=== PATIENT | female | born 1985 | race African-American/Black ===

== ENCOUNTER 2017-04-26 20:30 | Emergency (ER) | payer OTHER ==
[2017-04-26 20:51] VITALS: RESP 16
[2017-04-26 20:54] VITALS: PULSE 101; TEMP 97.7
[2017-04-26] MEDS ORDERED: SODIUM CHLORIDE 0.9% 1,000 ML IV ONE ×2 (21:04)
--- NOTE | 2017-04-26 22:27 | ED ---
Altered Mental Status HPI - General Chief Complaint: Altered Mental Status Stated Complaint: Altered Mental Status Time Seen by Provider: 04/26/17 20:32 Source: patient, EMS Mode of arrival: EMS - History of Present Illness Initial Comments: 1 years old young lady brought in by ambulance they found her sitting in front of doctor's office she was mumbling she was twitching and her conversation didn' t make any sense liver worried about altered mental status. She admits to drinking some alcohol and she said she drinks pretty regular she also admits to doing street drugs she was quite forthcoming what she did and she was twitching she was in a hard time sitting still though she was not anything. Suicidal or homicidal ideation. No headaches no neck pain no chest pain no shortness of breath no abdominal pain no frequency urgency dysuria, admits to having: Born and some pills of the street - Related Data Home Medications Medication Instructions Recorded Confirmed ALPRAZolam [Xanax] 12/08/15 12/08/15 Allergies Allergy/AdvReac Type Severity Reaction Status Date / Time No Known Allergies Allergy Verified 12/08/15 15:34 Review of Systems ROS Statement: Those systems with pertinent positive or pertinent negative responses have been documented in the HPI. ROS Other: All systems not noted in ROS Statement are negative. Past Medical History Past Medical History: Unable to Obtain Additional Past Medical History / Comment(s): PER PT'S GRANDMOTHER SINDY THAT HELPED RAISE HER HAD NO OTHER MEDICAL PROBLEMS BUT FOR MENTAL HEALTH ISSUES AND DRUG PROBLEM. SHE STATED PT TOLD HERE SHE ON METH AND GRANDMOTHER KNOWS THAT IN PAST SHE SMOKED MARIJUANA BUT NOT SURE IF SHE'S DOING ANY OTHER DRUGS. JUST GOT OUT OF [facility] 5-6 DAYS AGO(3RD TIME IN) UNABLE TO OBTAIN ANSWERS FOR DEPRESSION RISK SCREEN FROM PT. History of Any Multi-Drug Resistant Organisms: Unobtainable Past Surgical History: No Surgical Hx Reported Past Anesthesia/Blood Transfusion Reactions: No Reported Reaction Additional Past Anesthesia/Blood Transfusion Reaction / Comment(s): NEVER HAD ANY SX Past Psychological History: Anxiety, Bipolar, Schizophrenia Smoking Status: Current every day smoker Past Drug Use History: Cocaine, Heroin, Methamphetamine, Prescription Drug Abuse - Past Family History Mother Family Medical History: Coronary Artery Disease (CAD) Additional Family Medical History / Comment(s): STENTS Father History Unknown: Yes Additional Family Medical History / Comment(s): NEVER KNEW HER DAD General Exam - General Exam Comments Initial Comments: General: The patient is awake and alert, GCS is 15, seems like she is high on something, she do not want to be here she is questioning why was reported to the ER and she wants to leave Skin: Skin is warm and dry and no rashes or lesions are noted. Eye: Pupils are equal, not cooperative with exam Ears, nose, mouth and throat: There are moist mucous membranes and no oral lesions. Neck: The neck is supple, there is no tenderness or JVD. Cardiovascular: There is a regular rate and rhythm. No murmur, rub or gallop is appreciated. Respiratory: To auscultation bilateral, no wheezing no rhonchi no distress respiratory keith noticed Gastrointestinal: Soft, non-distended, non-tender abdomen without masses or organomegaly noted. There is no rebound or guarding present. Bowel sounds are unremarkable. Back: There is no tenderness to palpation in the midline. There is no obvious deformity. Musculoskeletal: Normal ROM, no tenderness, There is no pedal edema. There is no calf tenderness or swelling. No cords were appreciated. Neurological: CN II-XII intact, Cranial nerves III through XII are intact. There are no obvious motor or sensory deficits. Coordination appears grossly intact. Speech is normal. Psychiatric: Uncooperative with the exam Course Vital Signs 04/26/17 04/26/17 20:42 20:51 Temperature 97.0 F L 97.7 F Pulse Rate 85 101 H Respiratory 16 16 Rate O2 Sat by Pulse 97 Oximetry - Reevaluation(s) Reevaluation #1: 04/26/17 22:25 We ordered labs and were hydrated her, she pulled her IV and refused the labs and then was bit irritated and combative with staff left AGAINST MEDICAL ADVICE Disposition Clinical Impression: Acute alcohol intoxication, Substance abuse Disposition: Left Against Medical Advice Referrals: None,Stated [Primary Care Provider] - 1-2 days
== END 2017-04-26 22:21 | disposition left against medical advice (07) ==
LOC: EC 20:30
DX: F10.229 Alcohol dependence with intoxication, unspecified (principal); F19.19 Other psychoactive substance abuse with unspecified psychoactive substance-induced disorder; F41.9 Anxiety disorder, unspecified; R40.2412 Glasgow coma scale score 13-15, at arrival to emergency department; F17.200 Nicotine dependence, unspecified, uncomplicated; Z53.29 Procedure and treatment not carried out because of patient's decision for other reasons; Z79.899 Other long term (current) drug therapy
CPT/HCPCS: 99284

== ENCOUNTER 2017-05-23 07:54 | Emergency (ER) | payer OTHER ==
[2017-05-23 08:12] VITALS: TEMP 97.4
[2017-05-23] MEDS ORDERED: SODIUM CHLORIDE 0.9% 1,000 ML IV STA (08:28)
[2017-05-23 09:09] VITALS: BP 133/86; PULSE 129; RESP 18
[2017-05-23 09:20] LABS: Aty Lym Flag Slight; CH 26.9; HCT 41.9 % (34.0-46.0); HDW 2.72; HGB 13.9 gm/dL (11.4-16.0); MCH 28.1 pg (25.0-35.0); MCHC 33.2 g/dL (31.0-37.0); MCV 84.5 fL (80.0-100.0); Mean Platelet Volume 7.7; RBC 4.96 m/uL (3.80-5.40); RDW 12.8 % (11.5-15.5); WBC 12.4 k/uL (3.8-10.6); WBC (Perox) 12.61
--- NOTE | 2017-05-23 09:21 | ED ---
Overdose HPI - General Chief Complaint: Overdose Stated Complaint: overdose Time Seen by Provider: 05/23/17 08:13 Source: patient, EMS, RN notes reviewed, old records reviewed Mode of arrival: EMS Limitations: no limitations - History of Present Illness Initial Comments: This is a 31-year-old female presenting to the emergency Department chief complaint of overdose. Patient was brought in via EMS. They did give her Narcan and she was alert and oriented.Patient reports she remembers taking Xanax and that was it. Per EMS the patient was not breathing, and they did have to assist her ventilations. Patient is to the emergency department alert and oriented. She has no complaints besides a mild headache. Patient states that she has no significant medical history, denies any fevers or chills, chest pain, shortness of breath, abdominal pain, nausea or vomiting. - Related Data Home Medications Medication Instructions Recorded Confirmed No Known Home Medications [No 05/23/17 05/23/17 Known Home Medications] Allergies Allergy/AdvReac Type Severity Reaction Status Date / Time No Known Allergies Allergy Verified 05/23/17 08:11 Review of Systems ROS Statement: Those systems with pertinent positive or pertinent negative responses have been documented in the HPI. ROS Other: All systems not noted in ROS Statement are negative. Past Medical History Past Medical History: Unable to Obtain Additional Past Medical History / Comment(s): PER PT'S GRANDMOTHER SINDY THAT HELPED RAISE HER HAD NO OTHER MEDICAL PROBLEMS BUT FOR MENTAL HEALTH ISSUES AND DRUG PROBLEM. SHE STATED PT TOLD HERE SHE ON METH AND GRANDMOTHER KNOWS THAT IN PAST SHE SMOKED MARIJUANA BUT NOT SURE IF SHE'S DOING ANY OTHER DRUGS. JUST GOT OUT OF [facility] 5-6 DAYS AGO(3RD TIME IN) UNABLE TO OBTAIN ANSWERS FOR DEPRESSION RISK SCREEN FROM PT. History of Any Multi-Drug Resistant Organisms: Unobtainable Past Surgical History: No Surgical Hx Reported Past Anesthesia/Blood Transfusion Reactions: No Reported Reaction Additional Past Anesthesia/Blood Transfusion Reaction / Comment(s): NEVER HAD ANY SX Past Psychological History: Anxiety, Bipolar, Schizophrenia Smoking Status: Current every day smoker Past Drug Use History: Cocaine, Heroin, Methamphetamine, Prescription Drug Abuse - Past Family History Mother Family Medical History: Coronary Artery Disease (CAD) Additional Family Medical History / Comment(s): STENTS Father History Unknown: Yes Additional Family Medical History / Comment(s): NEVER KNEW HER DAD General Exam - General Exam Comments Initial Comments: Physical is a 31-year-old female. No acute distress. Patient is alert and oriented and pleasant. Limitations: no limitations General appearance: alert, in no apparent distress Head exam: Present: atraumatic, normocephalic, normal inspection, other ( is an abrasion over her right scalp.) Eye exam: Present: normal appearance, PERRL, EOMI. Absent: scleral icterus, conjunctival injection, periorbital swelling ENT exam: Present: normal exam, mucous membranes moist Neck exam: Present: normal inspection. Absent: tenderness, meningismus, lymphadenopathy Respiratory exam: Present: normal lung sounds bilaterally. Absent: respiratory distress, wheezes, rales, rhonchi, stridor Cardiovascular Exam: Present: regular rate, normal rhythm, normal heart sounds. Absent: systolic murmur, diastolic murmur, rubs, gallop, clicks GI/Abdominal exam: Present: soft, normal bowel sounds. Absent: distended, tenderness, guarding, rebound, rigid Extremities exam: Present: normal inspection, full ROM, normal capillary refill. Absent: tenderness, pedal edema, joint swelling, calf tenderness Back exam: Present: normal inspection Neurological exam: Present: alert, oriented X3, CN II-XII intact Psychiatric exam: Present: normal affect, normal mood Skin exam: Present: warm, dry, intact, normal color. Absent: rash Course Vital Signs 05/23/17 05/23/17 05/23/17 08:07 08:19 09:07 Temperature 97.4 F L Pulse Rate 140 H 126 H 129 H Respiratory 18 20 18 Rate Blood Pressure 172/109 133/88 133/86 O2 Sat by Pulse 95 99 97 Oximetry - Reevaluation(s) Reevaluation #1: 05/23/17 09:20 At this time patient eloped with her IV in. Security is trying to retrieve the patient and ensure that she does not have the IV left in her. She had unhooked herself from the fluids. Medical Decision Making - Medical Decision Making Is a 31-year-old female presenting to emergency Department chief complaint overdose. Patient was given Narcan EMS tolerated oriented. Patient arrived tachycardic at 130 bpm. She reports that she only took a Xanax that she remembers, patient was given IV fluids, urine drug screen, and lab work obtained. Patient was tachycardic 130 cardiac enzymes were completed. At 9:26 patient eloped from the ER after pulling out her IV. She was seen in the parking lot. She was unable to reach before leaving hospital grounds, however security stated that they did catch her and she removed the IV from her arm. Security did return the IV to the emergency department. After patient eloped she was noted patient had elevated cardiac enzyme. Urine drug screen was reviewed, Patient is positive for opiates, amphetamines, methamphetamines, benzodiazepines, cocaine and marijuana. Patient's tachycardia is related to amphetamines and methamphetamines. Patient troponin is likely elevated as well due to the cocaine amphetamines. We did attempt to reach the patient however there is no answer. Again patient eloped and left AGAINST MEDICAL ADVICE. - Lab Data Result diagrams: 05/23/17 09:00 05/23/17 09:00 Lab Results 05/23/17 05/23/17 05/23/17 Range/Units 09:00 09:00 09:00 WBC 12.4 H (3.8-10.6) k/uL RBC 4.96 (3.80-5.40) m/uL Hgb 13.9 (11.4-16.0) gm/dL Hct 41.9 (34.0-46.0) % MCV 84.5 (80.0-100.0) fL MCH 28.1 (25.0-35.0) pg MCHC 33.2 (31.0-37.0) g/dL RDW 12.8 (11.5-15.5) % Plt Count 314 (150-450) k/uL Neutrophils % (Manual) 79 % Band Neutrophils % 1 % Lymphocytes % (Manual) 15 % Monocytes % (Manual) 5 % Neutrophils # (Manual) 9.90 H (1.3-7.7) k/uL Lymphocytes # (Manual) 1.86 (1.0-4.8) k/uL Monocytes # (Manual) 0.62 (0-1.0) k/uL Nucleated RBCs 0 (0-0) /100 WBC Anisocytosis (manual) Present Sodium 138 (137-145) mmol/L Potassium 3.6 (3.5-5.1) mmol/L Chloride 101 (98-107) mmol/L Carbon Dioxide 28 (22-30) mmol/L Anion Gap 9 mmol/L BUN 11 (7-17) mg/dL Creatinine 0.93 (0.52-1.04) mg/dL Est GFR (MDRD) Af Amer >60 (>60 ml/min/1.73 sqM) Est GFR (MDRD) Non-Af >60 (>60 ml/min/1.73 sqM) Glucose 96 (74-99) mg/dL Calcium 9.1 (8.4-10.2) mg/dL Total Bilirubin 0.8 (0.2-1.3) mg/dL AST 43 H (14-36) U/L ALT 47 (9-52) U/L Alkaline Phosphatase 70 (38-126) U/L Troponin I (0.000-0.034) ng/mL Total Protein 8.0 (6.3-8.2) g/dL Albumin 4.0 (3.5-5.0) g/dL Urine HCG, Qual (Not Detectd) Salicylates <1.0 mg/dL Urine Opiates Screen Detected H (NotDetected) Ur Oxycodone Screen Not Detected (NotDetected) Urine Methadone Screen Not Detected (NotDetected) Ur Propoxyphene Screen Not Detected (NotDetected) Acetaminophen <10.0 ug/mL Ur Barbiturates Screen Not Detected (NotDetected) U Tricyclic Antidepress Not Detected (NotDetected) Ur Phencyclidine Scrn Not Detected (NotDetected) Ur Amphetamines Screen Detected H (NotDetected) U Methamphetamines Scrn Detected H (NotDetected) U Benzodiazepines Scrn Detected H (NotDetected) Urine Cocaine Screen Detected H (NotDetected) U Marijuana (THC) Screen Detected H (NotDetected) Serum Alcohol <10 mg/dL 05/23/17 05/23/17 Range/Units 09:00 09:00 WBC (3.8-10.6) k/uL RBC (3.80-5.40) m/uL Hgb (11.4-16.0) gm/dL Hct (34.0-46.0) % MCV (80.0-100.0) fL MCH (25.0-35.0) pg MCHC (31.0-37.0) g/dL RDW (11.5-15.5) % Plt Count (150-450) k/uL Neutrophils % (Manual) % Band Neutrophils % % Lymphocytes % (Manual) % Monocytes % (Manual) % Neutrophils # (Manual) (1.3-7.7) k/uL Lymphocytes # (Manual) (1.0-4.8) k/uL Monocytes # (Manual) (0-1.0) k/uL Nucleated RBCs (0-0) /100 WBC Anisocytosis (manual) Sodium (137-145) mmol/L Potassium (3.5-5.1) mmol/L Chloride (98-107) mmol/L Carbon Dioxide (22-30) mmol/L Anion Gap mmol/L BUN (7-17) mg/dL Creatinine (0.52-1.04) mg/dL Est GFR (MDRD) Af Amer (>60 ml/min/1.73 sqM) Est GFR (MDRD) Non-Af (>60 ml/min/1.73 sqM) Glucose (74-99) mg/dL Calcium (8.4-10.2) mg/dL Total Bilirubin (0.2-1.3) mg/dL AST (14-36) U/L ALT (9-52) U/L Alkaline Phosphatase (38-126) U/L Troponin I 0.057 H* (0.000-0.034) ng/mL Total Protein (6.3-8.2) g/dL Albumin (3.5-5.0) g/dL Urine HCG, Qual Not Detected (Not Detectd) Salicylates mg/dL Urine Opiates Screen (NotDetected) Ur Oxycodone Screen (NotDetected) Urine Methadone Screen (NotDetected) Ur Propoxyphene Screen (NotDetected) Acetaminophen ug/mL Ur Barbiturates Screen (NotDetected) U Tricyclic Antidepress (NotDetected) Ur Phencyclidine Scrn (NotDetected) Ur Amphetamines Screen (NotDetected) U Methamphetamines Scrn (NotDetected) U Benzodiazepines Scrn (NotDetected) Urine Cocaine Screen (NotDetected) U Marijuana (THC) Screen (NotDetected) Serum Alcohol mg/dL 05/23/17 14:11 EKG performed that 8:46 AM. It showed evidence of sinus tachycardia. Ventricular 124 bpm. NC interval 124 ms. QRS ration 72 Erika's seconds. QT QTC 304/[address] of [address] elevation or T-wave inversion. Disposition Clinical Impression: Overdose Disposition: Left Against Medical Advice Condition: Stable Referrals: None,Stated [Primary Care Provider] - 1-2 days Time of Disposition: 09:30
[2017-05-23 09:24] LABS: ALT 47 U/L (9-52); AST 43 U/L (14-36); Acetaminophen <10.0 ug/mL; Alcohol <10 mg/dL; Alkaline Phosphatase 70 U/L (38-126); Anion Gap 9 mmol/L; Blood Urea Nitrogen 11 mg/dL (7-17); Calcium 9.1 mg/dL (8.4-10.2); Carbon Dioxide 28 mmol/L (22-30); Chloride 101 mmol/L (98-107); Glucose 96 mg/dL (74-99); Non-African American GFR(MDRD) >60 (>60 ml/min/1.73 sqM); Potassium 3.6 mmol/L (3.5-5.1); Salicylate <1.0 mg/dL; Sodium 138 mmol/L (137-145); Total Bilirubin 0.8 mg/dL (0.2-1.3)
[2017-05-23 09:42] LABS: Add Differential Manual Differential
[2017-05-23 09:44] LABS: Band Neutrophils % 1 %; Nucleated Red Blood Cells 0 /100 WBC (0-0); Total Cells Counted 100
== END 2017-05-23 09:28 | disposition left against medical advice (07) ==
LOC: EC 07:54
DX: T42.4X1A Poisoning by benzodiazepines, accidental (unintentional), initial encounter (principal); R00.0 Tachycardia, unspecified; R74.8 Abnormal levels of other serum enzymes; R51 Headache; F17.200 Nicotine dependence, unspecified, uncomplicated
CPT/HCPCS: 36415; 80053; 80306; 80320; 81025; 83520; 84484; 85025; 93005; 99285

== ENCOUNTER 2018-01-20 13:11 | Emergency (ER) | payer OTHER ==
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
[2018-01-20 14:31] VITALS: BP 136/78; PULSE 91; RESP 18; TEMP 98.3
== END 2018-01-20 14:05 | disposition home or self-care (01) ==
LOC: EC 13:11
DX: T40.1X1A Poisoning by heroin, accidental (unintentional), initial encounter (principal); F17.200 Nicotine dependence, unspecified, uncomplicated
CPT/HCPCS: 99284

== ENCOUNTER 2019-02-19 04:26 | Emergency (ER) | payer OTHER ==
[2019-02-19 04:40] VITALS: BP 159/98; PULSE 105; RESP 20; TEMP 98.8
--- NOTE | 2019-02-19 04:48 | ED ---
Skin/Abscess/FB HPI - General Chief complaint: Skin/Abscess/Foreign Body Stated complaint: arm pain Time Seen by Provider: 02/19/19 04:39 Source: patient Mode of arrival: ambulatory Limitations: no limitations - History of Present Illness Initial comments: Fidel is a 33-year-old female with past medical history of substance abuse who presents the ER today for concern of infection in her right arm. Patient reports that approximately a week ago she injected methamphetamine into her right arm just proximal to the antecubital fossa. Ports that approximate 4 days ago she noticed some redness and swelling in the area. She reports that the area feels firm and tender. She denies any other complaints. She denies any fevers chills nausea or vomiting. Patient reports that she does not share needles and uses clean needles. - Related Data Previous Rx's Medication Instructions Recorded Cephalexin [Keflex] 500 mg PO Q6HR 7 Days #28 cap 02/19/19 Cephalexin [Keflex] 500 mg PO Q6HR 7 Days #28 cap 02/19/19 Allergies Allergy/AdvReac Type Severity Reaction Status Date / Time No Known Allergies Allergy Verified 02/19/19 04:40 Review of Systems ROS Statement: Those systems with pertinent positive or pertinent negative responses have been documented in the HPI. ROS Other: All systems not noted in ROS Statement are negative. Past Medical History Past Medical History: No Reported History Additional Past Medical History / Comment(s): PER PT'S GRANDMOTHER SINDY THAT HELPED RAISE HER HAD NO OTHER MEDICAL PROBLEMS BUT FOR MENTAL HEALTH ISSUES AND DRUG PROBLEM. SHE STATED PT TOLD HERE SHE ON METH AND GRANDMOTHER KNOWS THAT IN PAST SHE SMOKED MARIJUANA BUT NOT SURE IF SHE'S DOING ANY OTHER DRUGS. JUST GOT OUT OF [facility] 5-6 DAYS AGO(3RD TIME IN) UNABLE TO OBTAIN ANSWERS FOR DEPRESSION RISK SCREEN FROM PT. History of Any Multi-Drug Resistant Organisms: None Reported Past Surgical History: No Surgical Hx Reported Past Anesthesia/Blood Transfusion Reactions: No Reported Reaction Additional Past Anesthesia/Blood Transfusion Reaction / Comment(s): NEVER HAD ANY SX Past Psychological History: Anxiety, Bipolar, Schizophrenia Smoking Status: Current every day smoker Past Alcohol Use History: None Reported Past Drug Use History: Cocaine, Heroin, Methamphetamine, Prescription Drug Abuse - Past Family History Mother Family Medical History: Coronary Artery Disease (CAD) Additional Family Medical History / Comment(s): STENTS Father History Unknown: Yes Additional Family Medical History / Comment(s): NEVER KNEW HER DAD General Exam - General Exam Comments Initial Comments: Physical Exam GENERAL: Patient is well-developed and well-nourished. Patient is nontoxic and well- hydrated and is in no distress. HENT: Normocephalic, Atraumatic. EYES: PERRL, EOMI PULMONARY: Unlabored respirations. No audible rales rhonchi or wheezing was noted. CARDIOVASCULAR: There is a regular rate and rhythm without any murmurs gallops or rubs. ABDOMEN: Soft and nontender with normal bowel sounds. SKIN: Firm indurated area in the right arm proximal to the antecubital fossa. There is no erythema area is tender to palpation there is no fluctuance Bedside ultrasound reveals no pocket of fluid there is cobblestoning of the tissue : Deferred NEUROLOGIC: Patient is alert and oriented x3. Moving all extremities spontaneously MUSCULOSKELETAL: Normal extremities with adequate strength and full range of motion. No lower extremity swelling or edema. No calf tenderness. PSYCHIATRIC: Normal psychiatric evaluation. Limitations: no limitations Course Vital Signs 02/19/19 04:37 Temperature 98.8 F Pulse Rate 105 H Respiratory 20 Rate Blood Pressure 159/98 O2 Sat by Pulse 100 Oximetry Medical Decision Making - Medical Decision Making Patient was seen and evaluated history is obtained from patient history and physical exam are concerning for cellulitis of the right upper extremity, ultrasound confirms cobblestoning of the tissues with no signs of abscess formation, there is only minimal overlying erythema or warmth of the tissue and I suspect that a lot of the tissue changes are secondary to inflammation due to local tissue distraction and inflammatory changes however I will prescribe Keflex for the otitis. All questions pertaining care were answered return parameters discussed patient discharged home in stable condition She was advised that she'll be prescribed Keflex which is available for free from the [facility]. Disposition Clinical Impression: Cellulitis Disposition: HOME SELF-CARE Condition: Stable Instructions (If sedation given, give patient instructions): Cellulitis (ED) Prescriptions: Cephalexin [Keflex] 500 mg PO Q6HR 7 Days #28 cap Is patient prescribed a controlled substance at d/c from ED?: No Referrals: None,Stated [Primary Care Provider] - 1-2 days
[2019-02-19] MEDS ORDERED: CEPHALEXIN 500MG STARTER PACK 4 CAP BTL PO STA (05:06)
== END 2019-02-19 05:24 | disposition home or self-care (01) ==
LOC: EC 04:26
DX: L03.113 Cellulitis of right upper limb (principal); F17.200 Nicotine dependence, unspecified, uncomplicated
CPT/HCPCS: 99283